=== PATIENT | female | born 1995 | race Caucasian/White ===

== ENCOUNTER 2018-08-25 17:34 | Emergency (ER) | payer OTHER ==
[~2018-08-25] VITALS: Ht 170.2 cm; Wt 55.0 kg
[2018-08-25 17:35] VITALS: BP 134/88
[2018-08-25] MEDS ORDERED: AMOX500C PO (18:19)
[2018-08-25] MEDS ORDERED: IBUP80TA PO (18:20)
[2018-08-25 18:52] LABS: INFLUENZA A AMPLIFICATION NEGATIVE (NEGATIVE); INFLUENZA B AMPLIFICATION NEGATIVE (NEGATIVE)
== END 2018-08-25 18:30 | disposition home or self-care (01) ==
LOC: M ED 17:34
DX: J02.0 Streptococcal pharyngitis (principal)

== ENCOUNTER 2018-09-27 15:34 | Emergency (ER) | payer OTHER ==
[~2018-09-27] VITALS: Ht 170.2 cm; Wt 55.0 kg
[~2018-09-27 15:34] MED LIST: AMOX500C PO; IBUP80TA PO
[2018-09-27 17:53] LABS: BASO % 0.6 % (0.0-1.0); EOS % 0.5 % (0.0-3.0); HEMATOCRIT 35.5 % (36.0-47.0); HEMOGLOBIN 11.1 g/dl (12.0-15.5); LYMPH # 2.3 10^3/uL (1.5-6.5); LYMPH % 35.5 % (24.0-44.0); MEAN CORPUSCULAR HEMOGLOBIN 24.9 pg (27.0-33.0); MEAN CORPUSCULAR HGB CONC 31.3 g/dl (32.0-36.5); MEAN CORPUSCULAR VOLUME 79.8 fl (80.0-96.0); MONO # 0.5 10^3/uL (0.0-0.8); MONO % 8.5 % (0.0-5.0); NEUTROPHILS # 3.5 10^3/uL (1.8-7.7); NEUTROPHILS % 54.7 % (36.0-66.0); PLATELET COUNT, AUTOMATED 203 10^3/uL (150-450); RED BLOOD COUNT 4.45 10^6/uL (4.00-5.40); WHITE BLOOD COUNT 6.4 10^3/uL (4.0-10.0)
--- NOTE | 2018-09-27 18:00 | REP ---
PELVIC ULTRASOUND: Real-time sonographic evaluation of the pelvis was performed. Transabdominal technique is utilized. Patient declines endovaginal exam. The uterus measures 9.2 x 3.8 x 5.3 cm. Endometrial thickness is 6 mm. There is no endometrial fluid collection or gestational sac. The ovaries could not be identified. There is no gross adnexal mass or free fluid identified. Findings could represent very early intrauterine , missed AB or ectopic . Suggest correlation with serial quantitaive beta HCG values and followup ultrasound as necessary. Electronically Signed by Miles Kamara MD 09/27/2018 07:55 P
[2018-09-27 18:54] VITALS: BP 127/82
== END 2018-09-27 18:57 | disposition home or self-care (01) ==
LOC: M ED 15:34
DX: N93.8 Other specified abnormal uterine and vaginal bleeding (principal)

== ENCOUNTER 2018-10-15 11:01 | Emergency (ER) | payer OTHER ==
[~2018-10-15] VITALS: Ht 170.2 cm; Wt 53.8 kg
[~2018-10-15 11:01] MED LIST changes: +PENI500T PO
[2018-10-15] MEDS ORDERED: PENI500T PO (11:44)
[2018-10-15 11:55] LABS: BASO % 0.5 % (0.0-1.0); EOS # 0.1 10^3/uL (0.0-0.50); EOS % 1.1 % (0.0-3.0); HEMATOCRIT 38.2 % (36.0-47.0); LYMPH # 2.3 10^3/uL (1.5-6.5); LYMPH % 35.3 % (24.0-44.0); MEAN CORPUSCULAR HEMOGLOBIN 25.8 pg (27.0-33.0); MEAN CORPUSCULAR HGB CONC 31.4 g/dl (32.0-36.5); MEAN CORPUSCULAR VOLUME 82.2 fl (80.0-96.0); MONO # 0.5 10^3/uL (0.0-0.8); MONO % 7.3 % (0.0-5.0); NEUTROPHILS # 3.6 10^3/uL (1.8-7.7); NEUTROPHILS % 55.5 % (36.0-66.0); PLATELET COUNT, AUTOMATED 149 10^3/uL (150-450); RED BLOOD COUNT 4.65 10^6/uL (4.00-5.40); WHITE BLOOD COUNT 6.4 10^3/uL (4.0-10.0)
[2018-10-15 12:27] LABS: ALT/SGPT 18 U/L (12-78); BILIRUBIN,DIRECT 0.2 MG/DL (0.0-0.2); BILIRUBIN,TOTAL 0.4 MG/DL (0.2-1.0); BLOOD UREA NITROGEN 9 MG/DL (7-18); CALCIUM LEVEL 8.8 MG/DL (8.5-10.1); CARBON DIOXIDE LEVEL 26 MEQ/L (21-32); CHLORIDE LEVEL 107 MEQ/L (98-107); GLUCOSE, FASTING 84 MG/DL (70-100); LIPASE 124 U/L (73-393); SODIUM LEVEL 141 MEQ/L (136-145); TOTAL PROTEIN 7.5 GM/DL (6.4-8.2)
[2018-10-15] MEDS ORDERED: IBUPROFEN 600 MG TAB PO ONE (12:45)
[2018-10-15 13:46] VITALS: BP 133/73
--- NOTE | 2018-10-15 16:08 | REP ---
NON-OB PELVIC ULTRASOUND: HISTORY: Pelvic pain. The examination is limited secondary to bowel gas. The uterus measures 4.7 cm in transverse x 4.2 cm in AP x 8.2 cm in cephalocaudal dimensions. The endometrium measures 12.6 mm. The right ovary measures 2.4 x 1.4 x 2 cm. The left ovary measures 2.7 x 1.6 x 1.5 cm. There is no fluid in the cul-de-sac. IMPRESSION: Limited examination demonstrating no definite abnormality. Electronically Signed by Agus Small MD 10/15/2018 04:11 P
== END 2018-10-15 13:53 | disposition home or self-care (01) ==
LOC: M ED 11:01
DX: G44.209 Tension-type headache, unspecified, not intractable (principal); R10.84 Generalized abdominal pain; Z88.0 Allergy status to penicillin